=== PATIENT | male | born 1935 | race Caucasian/White ===

== ENCOUNTER 2019-11-27 19:16 | Inpatient (IN) | payer OTHER, BC ==
[~2019-11-27] VITALS: Ht 180.3 cm; Wt 54.0 kg
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
[2019-11-27 19:19] VITALS: BP 142/86
[2019-11-27 20:33] LABS: ABSOLUTE NEUTROPHILS 4.4 thou/uL (1.4-8.2); BASOPHILS 1.3 % (0.0-2.0); EOSINOPHILS 3.2 % (0.0-3.0); HEMATOCRIT 36.7 % (42.0-52.0); HEMOGLOBIN 12.5 gm/dL (14.0-18.0); LYMPHOCYTES 30.1 % (24.0-44.0); MCH 31.1 pg (26.0-34.0); MCHC 33.9 g/dL (28.0-37.0); MCV 91.8 fL (80.0-100.0); MONOCYTES 10.2 % (1.0-8.0); PLATELET COUNT 241 thou/uL (150-400); POLYS 55.2 % (36.0-66.0); RDW 14.2 % (10.5-14.5); WBC 8.1 thou/uL (4.0-11.0)
[2019-11-27 20:34] LABS: URINE BILIRUBIN NEGATIVE (Negative); URINE BLOOD NEGATIVE (Negative); URINE CLARITY CLEAR; URINE COLOR YELLOW; URINE GLUCOSE-RANDOM* NEGATIVE (Negative); URINE KETONES NEGATIVE (Negative); URINE LEUKOCYTES-REFLEX TRACE (Negative); URINE NITRITE-REFLEX NEGATIVE (Negative); URINE PROTEIN (DIPSTICK) NEGATIVE (Negative); URINE UROBILINOGEN 0.2 E.U./dl (0.2-1.0)
[2019-11-27 20:50] LABS: ANION GAP 3 mmol/L (7-16); BUN 27 mg/dL (7-18); CALCIUM 8.7 mg/dL (8.5-10.1); CHLORIDE 105 mmol/L (98-107); CO2 33 mmol/L (21-32); CREATININE 0.8 mg/dL (0.7-1.3); GLUCOSE 87 mg/dL (74-106); POTASSIUM 4.3 mmol/L (3.5-5.1); SODIUM 141 mmol/L (136-145)
[2019-11-27 20:54] LABS: AMP/METHAMP Negative (Negative); BARBITURATES Negative (Negative); BENZODIAZEPINES Negative (Negative); COCAINE Negative (Negative); METHADONE Negative (Negative); OPIATES Negative (Negative); PCP Negative (Negative)
[2019-11-27 20:55] LABS: ALBUMIN 3.6 g/dL (3.4-5.0); SGOT 17 U/L (15-37); SGPT 17 U/L (30-65); TOTAL BILIRUBIN 0.7 mg/dL (0.2-1.0); TOTAL PROTEIN 7.1 g/dL (6.4-8.2); TROPONIN-I <0.06 ng/mL (<0.06)
[2019-11-27] MEDS ORDERED: CHILDREN'S ASPI81 M1 PO (20:56)
[2019-11-27] MEDS ORDERED: DILTIAZEM 24HR120 M1 PO (20:57)
[2019-11-27] MEDS ORDERED: OLANZAPINE PO (20:58)
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
--- NOTE | 2019-11-28 14:27 | NUR ---
SPOKE WITH STEP DAUGHTER, AURELIA BAH: [phone] ABOUT PT STATUS; WOULD LIKE AN UPDATE WHEN AVAILABLE
[2019-11-28 15:34] VITALS: BP 145/89
[2019-11-28 16:31] VITALS: BP 146/85
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
--- NOTE | 2019-11-28 18:27 | NUR ---
PT STEP DAUGHTER AURELIA Silvestre. CALLED AND MESSAGE LEFT TO RETURN CALL.
[2019-11-28 19:16] LABS: TSH 2.952 uIU/mL (0.358-3.740)
[2019-11-28 19:25] VITALS: BP 132/71
--- NOTE | 2019-11-29 04:17 | NUR ---
Assumed care of pt @ 1900. Pt calm et cooperative this shift. No medication was given to patient on this shift. Pt very confused et repeatedly asked where his room was after just having been shown. Ambulates the halls ad cisco with steady gait. VSWNL. Health assessment with no abnormalities noted at present time. Denies SI/HI but unsure if patient completely understood the questions that were asked of him. Socialized with peers in dayroom until HS. Currently resting in bed with eyes closed. Will continue to monitor per protocol.
[2019-11-29 07:33] VITALS: BP 136/82
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
[2019-11-29 19:30] VITALS: BP 106/83
[2019-11-29 19:40] VITALS: BP 106/83
[2019-11-29 20:41] VITALS: BP 136/82
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
--- NOTE | 2019-11-30 08:36 | EKG ---
[facility] [place] [address] [place] [address] ELECTROCARDIOGRAM REPORT Name: TIFFANIE ROMEO Room #: 52-A ADM IN M.R.#: [id number] Admission: 11/28/19 Attend Phys: Reji Kelly DO Discharge: Date of : 33 Report #: [id number] THIS REPORT FOR: cc: Jerod Reich MD, Stanley P. MD Lundgren, Craig H. 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
--- NOTE | 2019-11-30 17:33 | NUR ---
PT HAS BEEN VERY PLEASANT ALL SHIFT. PT COMES OUT OF ROOM FULLY GROOMED AND MAKES OWN BED PRIOR TO COMING OUT. PT THEN EATS ALL MEALS AT TABLE. PT DID SEEM CONFUSED THIS AFTERNOON PACING AROUND THE UNIT HOLDING A BOX OF TISSUES AND A PATIENT WELCOME FOLDER. PT TAKES PILLS WHOLE ORDERED. NO BEHAVIOR ISSUES NOTED THIS SHIFT.
[2019-11-30 19:45] VITALS: BP 98/60
[2019-11-30 20:00] VITALS: BP 98/60
--- NOTE | 2019-12-01 00:24 | NUR ---
PATIENT WAS DIRECT ADMIT FROM [facility]. SHE CAME BY EMS AND ARRIVED BY STRETCHER TO [facility] AT 2130. SHE IS A/0X4. SHE WAS HOSPITALIZED FROM 11/21-11/27/19 AT [facility] FOR PSYCH ISSUES. SHE WENT BACK TO ED 11/30/19. PATIENT STATES SHE HAS BEEN HAVING AUDITORY HALLUCINATIONS FOR 2 MONTHS. SHE STATES THAT FROM HER [facility]ARTMENT WHERE SHE LIVES ALONE WITH HER CAT, THAT SHE HEARS THE ADMINISTRATION OFFICE WORKERS GOSSIPING AND SHE HAS CALLED THE OFFICE AND TOLD THEM THAT SHE CAN HEAR WHAT THEY ARE TALKING ABOUT. SHE ALSO STATES THAT SHE SEES A RECURRING NUMBER COME ACROSS HER CELL PHONE [phone] AND SHOWS HER THAT $1000 IS BEING TRANSFERRED OUT OF HER ACCOUNT. SHE STATES SHE CALLED HER SISTER WHO LIVES IN [place], [place] AND SHE CHECKED INTO IT AND TOLD THE PATIENT THAT THIS IS JUST IN HER MIND AND IT'S NOT REALLY HAPPENING. PATIENT DENIES WANTING TO HURT HERSELF OR ANYONE ELSE. SHE STATES SHE IS AWARE THAT SHE IS NOT THINKING RIGHT AND WANTS TO GET RID OF THE HALLUCINATIONS. PATIENT IS CONTINENT OF BOWEL AND BLADDER. SHE DOES HAVE A REDDENED AREA AT HER BUTTOCK CRACK THAT IS RED AND IRRITATED AND SORE. BARRIER CREAM IN ROOM FOR USE AFTER TOILETING AND SHOWERING. PATIENT USES A WALKER AT HOME BUT USES A CANE WHEN SHE WAS IN HOSPITAL BEFORE. WALKER AND BEDSIDE COMMODE PLACED IN PATIENT ROOM FOR USE. PATIENT WAS ASSISTED IN TRANSFER TO AND FROM [facility] AND IN PUTTING HER PANTS ON. PATIENT CAME IN WITH EYEGLASSES, HEARING AIDS X2 WITH BATTERIES THAT ARE IN HER LOCKER TONIGHT. SHE HAS DENTURES UPPER AND LOWER. SHE CAN FEED HERSELF. SHE REFUSED A BOX LUNCH TONIGHT EXPLAINING THAT SHE HAD SOME SNACKS AT [facility] BEFORE SHE CAME. SHE TOOK HER ORDERED HS MEDS WHOLE WITH WATER WITHOUT ISSUE. SHE IS STAND BY ASSIST X 1. PATIENT IS CALM AND COOPERATIVE. PT CONSULT ORDERED. FALL RISK BAND PLACED ON PATIENT. NO YELLOW SHIRTS IN HER SIZE ARE IN SUPPLY CLOSET AT THIS TIME. BED IN LOW POSITION AND BED ALARM ON. SABILLON PLACED NEXT TO PATIENT TO CALL FOR HELP. PT STATES SHE HAS PAIN AT TIMES FROM ARTHRITIS BUT DENIES ANY AT THIS TIME. NO AUDITORY HALLUCINATIONS AT THIS TIME. CONTINUING TO MONITOR.
--- NOTE | 2019-12-01 03:04 | NUR ---
PATIENT HAS BEEN UP WANDERING THE HALLS AND LOOKING LOST. HE HAS BEEN CARRYING PAPERS AND HIS WELCOME PACKET AROUND IN HIS HAND IF IT IS IMPORTANT FILES. HE HAS BEEN WANTING TO LEAVE TONIGHT AND KEEPS SAYING THAT HE HAS AN APPOINTMENT THAT HE NEEDS TO GO TO WITH HIS TOMORROW. PATIENT WAS REDIRECTABLE. HE DRESSED HIMSELF FOR BED BY PUTTING A GOWN OVER HIS CLOTHES HE HAD ON ALREADY. HE STATES THIS WILL KEEP HIM WARMER. PT TOOK HIS HS MED WITHOUT ISSUE. HE WENT TO BED ON HIS OWN TONIGHT. CONTINUING TO MONITOR.
[2019-12-01 09:07] VITALS: BP 115/64
--- NOTE | 2019-12-01 14:19 | NUR ---
Alert and orientated X4. Calm and compliant for the most part this AM. One incident of becoming agitated this AM after breakfast when another pt. was bothering him. Began yelling for the nurse and when incident was addressed he pushed himself back forcefully from the table and then calmed himself down with some direction from staff. Denies SI/HI but states that sometimes he wants to scare people when they are bothering him. Breath sounds clear. Reg HR auscultated. Color pink with brisk capillary refill and palpable peripheral pulses. Independent with voiding. Active bowel sounds over soft, flat abdomen. Participating in group this AM.
--- NOTE | 2019-12-01 14:21 | NUR ---
CHRIS contacted Joanne to introduce self. No answer. CHRIS left msg. [phone]. SW team will continue to follow pt during his stay on this unit.
--- NOTE | 2019-12-01 14:26 | NUR ---
Alert and orientated X 1 this AM. Does have some coherent speech but alot of confused speech. Unsteady on his feet this AM when first awake, placed on fall precautions. Much more steady when ambulating later in AM. Denies SI/HI. Calm and compliant, participating in cares/groups. Breath sounds clear. Reg HR auscultated. Color pink with brisk capillary refill and palpable peripheral pulses. Independent with voiding. Active bowel sounds over soft, flat abdomen. Participating in groups this AM.
[2019-12-01 19:16] VITALS: BP 138/82
[2019-12-01 22:53] VITALS: BP 138/82
--- NOTE | 2019-12-02 00:43 | NUR ---
Assumed care of patient this pm shift. Patient is in good spirits, pleasantly confused. Patient is calm and cooperative, easily redirectable. Patient wonders around the unit, exit seeking by the main doors. Patient is alert and oriented to self only. Patients affect is blunted. Patient takes medications whole and needs encouragement to take them. Patient is ambulatory and walks with a steady gait. Patients assessment shows no signs of acute distress. Patient denies pain. Patient denies hi/si. We will continue to monitor per hospital policy. Patient did not voice any concerns at this time.
[2019-12-02 09:13] VITALS: BP 136/84
--- NOTE | 2019-12-02 09:39 | NUR ---
PATIENT IS UP, AND OUT ON THE UNIT, AMBULATES WITH SLOW SLIGHTLY UNSTEADY GAIT. PATIENT TOOK ALL MEDICATION WHOLE WITHOUT DIFFICULTY. PATIENT IS EATING MEALS, AND DRINKING FLUID WELL. PATIENT IS ALERT TO SELF, PLEASANTLY CONFUSED, WANDERS, CAN BE INTRUSIVE AT AT TIMES. PATIENT DENIES SUICIDAL/HOMICIDAL IDEATION, NOT ABLE TO APPROPRIATELY RESPOND TO FURTHER ASSESSMENT QUESTIONS DUE TO COGNITIVE IMPAIRMENT. PATIENT DENIES HAVING PHYSICAL PAIN. AFFECT FLAT/BLUNTED, MOOD IS EUTHYMIC. NO SIGN OF ACUTE DISTRESS NOTED AT THIS TIME, WILL CONTINUE TO REDIRECT, AND MONITOR FOR SAFETY.
[2019-12-02 20:17] VITALS: BP 137/87
--- NOTE | 2019-12-03 04:04 | NUR ---
assumed care approx 190 evening 12/01. pt sitting in recliner in community room and also up ambulating freely tolerating well. pt pleasant and cooperative taking hs meds willingly. pt sleeping off and on sometimes ambulating out to community room and watching tv. will continue to monitor.
[2019-12-03 09:16] VITALS: BP 113/75
--- NOTE | 2019-12-03 09:50 | NUR ---
CHRIS contacted Joanne. No answer. CHRIS left ms. SW team will continue to follow pt during his stay on this unit.
--- NOTE | 2019-12-03 10:42 | NUR ---
PATIENT HAS BEEN UP, AND OUT ON THE UNIT, AMBULATES WITH SLOW SLIGHTLY UNSTEADY GAIT. PATIENT IS FORGETFUL, CONFUSED, WANDERS INTO PEERS ROOMS, EXIT SEEKS, REDIRECTALE THOUGH. PATIENT IS CALM, COOPERATIVE WITH CARE, FOLLOWS DIRECTION. PATIENT TOOK ALL MEDICATION WHOLE WITHOUT DIFFICULTY, HE IS EATING MEALS, AND DRINKING FLUID WELL. PATIENT DENIES SUICIDAL/HOMICIDAL IDEATION. PATIENT NOT ABLE TO APPROPRIATELY RESPOND TO FURTHER ASSESSMENT QUESTIONS DUE TO COGNITIVE IMPAIRMENT. AFFECT IS FLAT/BLUNTED, MOOD IS EUTHYMIC. NO AGGRESSION OR AGITATION NOTED, NO SIGN OF ACUTE DISTRESS NOTED AT THIS TIME, WILL MONITOR FOR SAFETY.
--- NOTE | 2019-12-04 04:20 | NUR ---
Pt. up late during the evening wandering around the halls and in the dining area. He offers no complaints. Currently resting quietly in his bed. Pt. offers no complaints of pain.
--- NOTE | 2019-12-04 08:16 | NUR ---
RT Progress Note- Josh's level of participation in the milieu and groups is hindered by his cognition, though he has been present in most morning exercise groups since admission. Josh is pleasant in short conversations that remain nonsensical and is easily redirected to a task for short periods of time when he begins wandering the unit.
[2019-12-04 09:30] VITALS: BP 117/76
--- NOTE | 2019-12-04 09:44 | NUR ---
PT FINISHED BREAKFAST. PT TOOK HIS MEDS WITHOUT ANY ISSUES. PT STATED HE WANTED TO GO HOME AND COME BACK. PT UP WALKS ON HIS OWN WITH STEADY GAIT. PT DENIES ANY PAIN.
--- NOTE | 2019-12-04 11:59 | NUR ---
SW received a vm from Glenys with the [facility] in regards to pt at [phone]. She said that she has been involved with pt's for a while and is very concerned about pt going home. She said pt's is the only DPOA and does not have a DPOA herself; she is not appropiate to care for pt. She is concerned that she will not make the decision for pt to go into placement, and pt is a safety risk at home so may be in need of a state guardian. She asked if she could have an incapacity letter sent to her.
[2019-12-04 13:29] VITALS: BP 117/76
[2019-12-04 19:50] VITALS: BP 117/68
--- NOTE | 2019-12-05 03:21 | NUR ---
ASSESSMENT: PT REMAIN ALERT TIMES ONE, CONFUSED. WALKING AROUND THE UNIT, WANDERING IN OTHERS ROOM. INCONTINENT IN PANTS BEFORE GETTING IN BED. FOLLOWED DIRECTIONS AND DID NOT GET AGGRESSIVE THIS SHIFT. ONCE CLOTHES WERE TAKEN OFF AND A GOWN WAS GIVEN TO HIM, HE WENT STRAIGHT TO SLEEP. SLOW PROGRESS TOWARDS DC GOALS., WILL CONTINUE TO MONITOR.
[2019-12-05 08:30] VITALS: BP 110/66
--- NOTE | 2019-12-05 08:46 | NUR ---
PT UP EATING BREAKFAST. PT TOOK MEDS THIS AM WITHOUT ANY ISSUES. THIS MANAGER EMS ASSISTED WITH CUTTING UP PEACHES. PT ALERT TO SELF. PT THINKS HE CAN LEAVE AND IS READY TO LEAVE. PT UP AD DAVID WITH STEADY GAIT.
--- NOTE | 2019-12-05 11:00 | NUR ---
PT WALKING AROUND WITH BELONGINGS IN BAG AND GOING INTO OTHER ROOMS. PT EASILY DIRECTED OUT OF ROOM TO HIS ROOM. PT ALLOWED THIS PAY CLERK TO TAKE BAG FROM HIM AND PUT IN HIS ROOM.
--- NOTE | 2019-12-05 19:02 | NUR ---
PT HAS HAD A GOOD DAY TODAY. PT HAS BEEN UP WALKING AND GOING INTO AND OUT OF ROOM. PT EASILY DIRECTED. PT DID LAY DOWN FOR A NAP TODAY RIGHT AFTER 1500 MED.
--- NOTE | 2019-12-06 04:15 | NUR ---
PATIENT ASSESSED AND IS ALERT X 2. IS CONFUSED BUT VERY PLEASANT.UP AD DAVID IN HALLWAY AND HIS ROOM. TAKEN ALL MEDS WELL. IS FORGETFUL WHERE HIS ROOM IS AT. WONDERS IN OTHER PEOPLES ROOMS. REDIRECTED WILL GOOD SUCCESS. NO BEHAVIORS THIS SHIFT. NO SI/HI/AVH NOTED THIS SHIFT. SLEEPING WELL.A MAJOR NEUROCOGNATIVE DISORDER. REMAINS COOPERATIVE THIS SHIFT. CONT PLAN OF CARE.
[2019-12-06 07:00] VITALS: BP 111/69
[2019-12-06 13:33] VITALS: BP 111/69
--- NOTE | 2019-12-06 16:47 | NUR ---
ASSUMED CARE OF PT AT 0700. PT ALERT AND ORIENTED TIMES TWO. VSS. VERY CONFUSED. PT DENIES SI/HI. PT APPEARS TO BE TALKING TO HIMSELF. PT DENEIS PAIN. PT UP AND OUT AROUND THE UNIT, AND INTERACTS WITH STAFF AND PEERS. PT TOLERATES MEDS AND MEALS. WILL CONTINUE TO MONITOR.
[2019-12-06 20:20] VITALS: BP 118/67
[2019-12-06 21:05] VITALS: BP 118/67
--- NOTE | 2019-12-07 01:30 | NUR ---
PATIENT WAS UP IN DINING ROOM TONIGHT VISITING WITH ANOTHER PATIENT WHO THOUGHT THIS PATIENT WAS HER . THEY WERE BOTH PLEASANTLY CONFUSED AND CONVERSED TOGETHER. HE HAD HS SNACK. PATIENT SAT QUIETLY IN DR UNTIL BED. HE WAS ABLE TO FIND HIS ROOM TONIGHT. HE DID SAY HE WOULD LIKE TO LEAVE AT 0930 IN THE MORNING FOR AN APPOINTMENT FOR HIS CAR. HE TOOK HIS HS MED WITHOUT ISSUE. HE HAD BM 8. HE DENIES PAIN, SI/HI. HE IS CONFUSED AND DELUSIONAL BUT IS NOT TRYING TO ELOPE. PATIENT IS CONTINENT AND DOES TAKE HIMSELF TO THE RESTROOM. BED ALARM ON FOR SAFETY. PATIENT ABLE TO GO TO BED ON HIS OWN TONIGHT. ROUTINE ROUNDING TO ASSESS FOR SAFETY AND STATUS OF PATIENT. CONTINUING TO MONITOR.
[2019-12-07 08:00] VITALS: BP 132/67
[2019-12-07 08:47] VITALS: BP 132/67
--- NOTE | 2019-12-07 08:49 | NUR ---
PT TOOK MEDS THIS AM WITHOUT ANY ISSUES. PT CONFUSED AND ORIENTED TO SELF. PT WALKS UP AD DAVID WITHOUT ANY ISSUES. PT KNOWS WHERE HIS ROOM IS AND IS VERY NEAT. PT ABLE TO FEED SELF AND DOES EAT HIS MEALS. PT SITS IN DINING ROOM AT TIMES AND ISN'T VERY SOCIAL.
--- NOTE | 2019-12-07 14:51 | NUR ---
PT WALKING AROUND UNIT WITH HIS BAG OF CLOTHES, PT READY TO GO HOME.
[2019-12-07 19:39] VITALS: BP 150/68
[2019-12-07 22:46] VITALS: BP 150/68
--- NOTE | 2019-12-08 02:43 | NUR ---
Assumed care of patient this pm shift. Patient is pleasantly confused ambulating in the us with a bag of his belongings. Patient denies pain. Patient denies hi/si. Patient is alert and oriented to self. Patient takes medications whole with thin fluids. Patients affect is blunted. Patients assessment shows no signs of acute distress. Patient is continent of bowel and bladder. Patient asked RN how much a room was going to cost and when he can get off this floor for business that he has on another floor. Patient is calm and cooperative and easily redirected. We will continue to monitor per hospital policy.
[2019-12-08 07:25] VITALS: BP 120/73
--- NOTE | 2019-12-08 08:29 | NUR ---
PT UP IN DINING ROOM. PT TAKING PO MEDS WITHOUT ANY ISSUES. PT LUNGS CLEAR. PT IS FEEDING SELF AND DRINKING ENSURE. PT DOES WALK AROUND WITH BAG OF BELONGINGS CHECKING DOORS.
[2019-12-08 08:30] VITALS: BP 120/73
--- NOTE | 2019-12-08 10:22 | NUR ---
SW received a vm from Glenys asking her to fax the incapacity letter for pt to [phone]. SW team will continue to follow pt during his stay on this unit.
--- NOTE | 2019-12-08 14:36 | NUR ---
CHRIS spoke with Veronika Black at [phone]; she is currently in rehab at [facility]. She confirmed that she is wanting placement for pt with the possiblity of her moving into either [place] or [place] side of the facility while pt resides in the memory care. CHRIS faxed a listing to [phone]. CHRIS team will continue to follow pt during her stay on this unit.
--- NOTE | 2019-12-08 17:25 | NUR ---
PT HAD BAG OF CLOTHES TODAY, PT EASILY REDIRECTED TO PUT CLOTHES BACK TO ROOM. PT TALKED ABOUT [place] AND SOMETHING IS WRONG THERE. HE STATED HE STOPPED DRINKING, PT STATED HE IS TOO OLD TO GO TO [place] NOW.
[2019-12-08 18:51] VITALS: BP 139/62
--- NOTE | 2019-12-09 01:04 | NUR ---
Assumed pt's care this pm shift. Pt wasin the hallway, wandering and exit seeking with a brown paper bag. Pt voiced that he was ready to go home. Nursing reoriented pt and informed pt that he would be staying here in the hospital this night. Pt was able to sit down in the dayroom when nursing prompted to, in order to carry out assessment. Pt was alert and oriented to self, confused, forgetful. Pt had flight of ideas, tangential. Pt was calm and cooperative with assessment. Pt took meds whole before going to bed. Pt currently in bed sleeping. Will continue to monitor.
[2019-12-09 07:25] VITALS: BP 135/85
--- NOTE | 2019-12-09 12:10 | NUR ---
calm and cooperative. denies si/sh/hi. gait steady without assistive devices. APPETITE FAIR. ORIENTED TO PERSON ONLY. COMPLIENT WITH TAKING MEDICATIONS PRESCRIBED.
--- NOTE | 2019-12-09 14:32 | NUR ---
CHRIS and Dr. Kelly attempted to contact Veronika at [facility]. No answer. CHRIS contacted the CHRIS Adams and left a msg for Veronika with her. CHRIS and Dr. Kelly contacted Joanne. No answer. Dr. Kelly left her a msg stating that Veronika is now making decisions for pt again and so he and CHRIS will be communicating with her in regards to pt's care. SW team will continue to follow pt during his stay on this unit.
[2019-12-09 19:29] VITALS: BP 109/58
[2019-12-09 20:30] VITALS: BP 109/58
--- NOTE | 2019-12-09 22:57 | NUR ---
PATIENT WAS TIRED TONIGHT. HE SAT IN DINING ROOM FOR AWHILE AND HAD HS SNACK. HE WENT TO BED BEFORE 2100. HE STATES HE HAD A SMALL STOOL TODAY BUT THAT IT IS FIRM. PATIENT GIVEN MOM WITH HS MED. HIS BREATH SMELLS LIKE BM. HIS ABDOMEN IS ROUND AND FIRM TONIGHT. HE DENIES PAIN. HE DENIES SI/HI/AVH. TONIGHT HE SAID HE HAD A ROOM THAT HE STAYS IN HERE AND THAT HE WAS GOING TO GO TO IT AND GET READY FOR BED. THERE WAS NO EXIT SEEKING TONIGHT OR MENTION OF LEAVING. PATIENT SEEMS CONTENT AND MORE COMFORTABLE IN HIS SURROUNDINGS AND LESS ANXIOUS. BED IN LOW POSITION AND BED ALARM IS ON. PATIENT A/O X 2. PATIENT IS A STANDBY ASSIST WHEN TOILETING. WILL CONTINUE TO ROUND TO ASSESS STATUS AND SAFETY OF PATIENT. PATIENT UP TO BATHROOM ONCE SO FAR TONIGHT WITHOUT A BM.
--- NOTE | 2019-12-10 05:42 | NUR ---
PATIENT SLEPT THRU NIGHT AND WAS UP X 3 TO USE RESTROOM. NO BM RESULTS. PATIENT SLEEPING AT THIS TIME. WILL CONTINUE TO MONITOR. BED IN LOW POSITION AND BED ALARM IS ON.
[2019-12-10 08:00] VITALS: BP 125/79
--- NOTE | 2019-12-10 12:06 | NUR ---
PT CARE ASSUMED AT 0700. A&Ox1. PT PACING THE HALLS AND WILL MUMBLE HIS NEEDS AND WHEN ASKED TO REPEAT WHAT HE SAID WILL RESPOND WITH NEVER MIND IN A KIND TONE. WOULD LIKE TO SHOWER TOMORROW. OT/PT ON BOARD. PT PARTICIPATED IN GROUP. NEED TO GET A STANDING WEIGHT, WILL NOTE ONCE COMPLEETE. WILL CONTINUE TO MONITOR. CALL LIGHT IN REACH.
--- NOTE | 2019-12-10 14:21 | NUR ---
SW sent referrals to [facility], [facility], [facility], and [facility]. SW team will continue to follow pt during her stay on this unit.
[2019-12-10 19:31] VITALS: BP 127/83
--- NOTE | 2019-12-11 05:32 | NUR ---
Assumed care of pt @ 1900. Pt calm et cooperative this shift but continues to be very confused. Took medication whole without difficulty. Ambulates the halls ad cisco with mostly steady gait. VSWNL. Health assessment with no abnormalities noted at present time. Unable to assess SI/HI due to cognitive deficit but pt does not demonstrate any signs or symptoms of emotional distress at present time. Currently resting in bed with eyes closed. Will continue to monitor per protocol.
--- NOTE | 2019-12-11 11:41 | NUR ---
RT Progress Note- Josh attends most recreation groups he is requested to attend. His cognition hinders his full participation, but he is able to remain present and focused- sometimes writing on scratch paper to keep busy. He has not displayed any aggression or agitation and is redirectable when requiring reorientation to unit and surroundings as he frequently states he is going to go home.
--- NOTE | 2019-12-11 12:42 | NUR ---
PATIENT CARE ASSUMED AT 0700 - ABLE TO AMUBLATE INDEPENDENTLY. MAKES NEEDS KNOWN BUT CONFUSION EVIDENT AT TIMES. PATIENT DENIES ANY PAIN OR DISCOMFORT. WANDERS ABOUT UNIT - TRIES DOORS AT TIMES. PATIENT APPETITE GOOD - SLEPT IN THIS MORNING - HAD BREAKFAST LATE. UP AND DRESSED SELF - MADE BED AND TOOK CARE OF OWN ADL AND TOLLETING. PATIENT TAKES MEDICATIONS WHOLE COMPLIANTLY.NO AGITATION - PLEASANT AND AGREEABLE. - NEEDS REDIRECTION - GAIT STEADY.
--- NOTE | 2019-12-11 14:30 | NUR ---
CHRIS received notice from [facility] that their memory care unit is full. CHRIS also received a call from [facility] asking for a return call. CHRIS spoke to Joanne extensively (per Veronika's request) about d/c options. They discussed alternative options if pt's continuous churn buttermaker care insurance continues to be pending such as: taking pt home with hired staff and placing him in respite until a decision can be made. CHRIS explained that both options will be out of pocket. Joanne said they were interested in [facility] and doing respite. CHRIS contacted [facility] at [phone]. She did not get an answer from Olu so she left a msg with the switchboard operator receptionist. CHRIS told Joanne that she will pass her info to the coordiantor [facility] once he calls and ask him to call her to discuss respite.
[2019-12-11 19:09] VITALS: BP 113/66
--- NOTE | 2019-12-12 05:16 | NUR ---
Assumed care of pt @ 1900. Pt calm et cooperative with pleasant demeanor this shift. Took medication whole without difficulty. Ambulates the halls ad cisco with steady gait. VSWNL. Health assessment with no abnormalities noted at present time. Denies SI/HI but unsure if pt truly understands the questions asked of him at the present time. Currently resting in bed with eyes closed. Will continue to monitor per protocol.
[2019-12-12 07:30] VITALS: BP 126/74
--- NOTE | 2019-12-12 14:23 | NUR ---
PATIENT CARE ASSUMED AT 0700 - PATIENT ALERT TO SELF - AGREEABLE AND PLEASANT. CONFUSED - FOUND THIS MORNING IN PEERS ROOM IN BATHROOM. UNDERSTANDING LIMITED - EASILY REDIRECTED. WANDERS ABOUT THE UNIT - ELOPEMENT RISK - MEDICATION COMPLIANT. NO AGITATION OR AGGRESSION NOTED. GOOD APPETITE - 100 PER CENT OF BREAKFAST AND LUNCH. AMBULATES STEADILY - TOLLETS SELF - HAS EPISODES OF INCONTINENCIES.
[2019-12-12 19:47] VITALS: BP 125/81
--- NOTE | 2019-12-13 03:49 | NUR ---
Assumed care of pt @ 1900. Pt calm et cooperative with pleasant demeanor this shift. Took medications whole without difficulty. Ambulates the halls ad cisco with steady gait. VSWNL. Health assessment with no abnormalities noted at present time. Socialized with peers in dayroom until HS. Denies SI/HI but unsure that pt truly understands the questions asked of him. Continue to have bouts of confusion. Currently resting in bed with eyes closed. Will continue to monitor per protocol.
[2019-12-13 07:29] VITALS: BP 118/75
--- NOTE | 2019-12-13 10:34 | NUR ---
Assumed care for patient at 0700. Ambulatory, gait steady. Confused. Patient stated he was in [place] yesterday talking to a man. Cooperative with care. Alert, oriented to person, knew he was somewhere else but could not name this place. Lungs sounds clear, abdomen soft, bowel sounds present. Heart rate regular. No peripheral edema observed. Bruising notes in upper extremeties. Calm, No agitation or aggression noted. No seizure activitiy observed. taking medications without issue. Euthymic. Sitting up in dayroom.
--- NOTE | 2019-12-13 16:42 | NUR ---
SW received a message from Olu with [facility] [phone]; returned his call but was unable to leave a voice message. Also, received a message from Pastora [phone] cell with [facility]; returned her call and left a message for her.
[2019-12-13 19:14] VITALS: BP 101/67
--- NOTE | 2019-12-14 02:26 | NUR ---
ASSUMED CARE FROM DAYSHIFT RN PT UP IN DAY ROOM.AL COOPERATIVE , CONFUSION NOTED IN CONVERSATON,PO MEDICATION. PT FULLY DRESSED IN CLOTHING WAITING TO BE DISMISSED. HS SNACK EATEN TOLERTED WE. PT NOW SLEEPING QUIETLY WILL THROUGHOUT PROTOCOL ROUNDS.WILL CONITUNE MONITOR AND REPORT CHANGES .
[2019-12-14 07:13] VITALS: BP 85/52
[2019-12-14 07:56] VITALS: BP 117/49
--- NOTE | 2019-12-14 14:58 | NUR ---
CHRIS received a message from Leta with [facility] [phone] office/ [phone] fax stating she spoke to Joanne who is asking that a referral be sent to them. CHRIS spoke to Joanne to clarify and informed that [facility] has accepted pt. Joanne reports her mother reported speaking to Pastora with [facility] but was not sure what they discussed. CHRIS provided [facility]'s contact information and informed that pt is scheduled for discharge on . Joanne stated [facility] is closer to pt's home but she would give [facility] a call to make a final decision. CHRIS faxed a referral to [facility] per the family's request. CHRIS team will continue to follow during inpatient stay.
--- NOTE | 2019-12-14 17:17 | NUR ---
ASSUMED PATIENT CARE AT 0700. ALERT TO SELF. CONFUSED AND IRRITABLE SOMETIMES. AMBULATED IN HALLWAY. SLOWLY TOWARDS POC GOALS.
[2019-12-14 19:59] VITALS: BP 97/66
--- NOTE | 2019-12-15 06:13 | NUR ---
Assumed pt's care @2340. Spoke with pt briefly prior to assumption of care. Pt oriented to self. Confusion. Wandering into other pts' rooms. Pt had an uneventful night. Woke up several times to use the bathroom and went back to sleep afterwards. Pt still in his bed, sleeping. Will continue to monitor.
[2019-12-15 07:28] VITALS: BP 92/65
[2019-12-15 08:57] VITALS: BP 98/50
--- NOTE | 2019-12-15 08:58 | NUR ---
follow up on am vs pt bp 92/50 and pulse 150 PER MACHINE ON AM VS-AMBER RECHECK AT APPROX. 0830 DOES SHOW BP 98/50-PULSE RATE IS IRREGULAR WITH RATE OF 73. PT DENIES DIZZINESS, OR DIZZINESS UPON ARISING -WAS COOPERATIVE WITH ALLOWING STAFF TO ASSIST TO TABLE AND TAKING 120 CC FLUIDS PRIOR TO BREAKFAST-DOES REPORT FEELING "FULL" AFTER DRINKING 60-80 CC BUT CONSUMED REST WITH SUPPORT/REASSURANCE.
--- NOTE | 2019-12-15 10:18 | NUR ---
CHRIS received a call from Joanne stating that Veronika is in tears because she believes someone called her and told her the pt was dying. CHRIS talked with Dr. Kelly who said that he called Veronika to ask about DNR status, not to tell her pt was dying. CHRIS and Dr. Kelly spoke with Joanne and explained the DNR status and also the fact that pt' is being examined because his heart rate is high; he may go medical. Dr. Kelly agreed to contact Joanne later with an update. CHRIS spent more time discussing with her DNR and hospice. She said her and her mom Veronika are going ot [facility] to look at the facility. They will make a choice between [facility] [place] and [facility]. SW team will continue to follow pt during his stay on this unit.
[2019-12-15 10:36] LABS: HEMATOCRIT 33.5 % (42.0-52.0); HEMOGLOBIN 11.2 gm/dL (14.0-18.0); MCH 31.2 pg (26.0-34.0); MCHC 33.5 g/dL (28.0-37.0); MCV 93.1 fL (80.0-100.0); RBC 3.6 mil/uL (4.50-6.00); RDW 14.6 % (10.5-14.5); WBC 6.8 thou/uL (4.0-11.0)
--- NOTE | 2019-12-15 10:36 | NUR ---
DR. SONG ON FLOOR AND ROUNDING ON PT AT APPROX 1000-INFORMED OF LABILE HEARTRATE THIS AM-CONNECTED TO VS MACHINE FOR CONSTATN MONITORING OF HR AND INITIALLY RATE IN 80'S WITHIN 30 MINUTES 147-PT DENIES CHEST PAIN/DISCOMFORT-BP 114/68-02 SAT 98 PERCENT ON RA. EKG COMPLETED AT APPROX 1012-DR SONG NURSING PEST CONTROL OPERATOR AND PROCUREMENT OFFICER,LAB AT BEDSIDE. IV STARTED IN RIGHT FOREARM-IV BOLUS NORMAL SALINE 250CC PER HOUR INITTIATED AT APPROX 1020. PT IS ALERT CONTINUES TO DENY/[id number] STATING "SHOULD I GO BACK TO MY BED"
[2019-12-15] MEDS ORDERED: VITAMIN D325 MC1 PO (10:43)
[2019-12-15 10:52] LABS: ANION GAP 5 mmol/L (7-16); BUN 35 mg/dL (7-18); CALCIUM 8.7 mg/dL (8.5-10.1); CHLORIDE 105 mmol/L (98-107); CO2 32 mmol/L (21-32); CREATININE 0.8 mg/dL (0.7-1.3); GLUCOSE 124 mg/dL (74-106); MAGNESIUM 2.1 mg/dL (1.8-2.4); POTASSIUM 4.3 mmol/L (3.5-5.1); SODIUM 142 mmol/L (136-145); TROPONIN-I <0.06 ng/mL (<0.06)
--- NOTE | 2019-12-15 11:06 | NUR ---
REC INFO TO CALL 5S TO REC REPORT ON PT JUST INVOLVED IN RAT. CALLED BACK IN THREE MIN AND NURSE WAS UNAVAILABLE AND SAID SHE'D RETURN CALL. READING NOTES SHOW PT ELOPEMENT RISK, HE'LL BE DELIVERED TO CCU AFTER HIS CXR. REC FULL REPORT AND WILL AND ADMIT APPLICABLE ONCE HE'S ON UNIT. 5S STAFF STATE HE HAS SEVERE DEMENTIA, SWEET, WALKS ON HIS OWN UP ON 5S, ADMITED HE WAS TRYING TO LEAVE HIS HOME AND STRUCK OUT AT HIS SPOUSE.
--- NOTE | 2019-12-15 11:44 | EKG ---
[facility] [place] [address] [place] [address] ELECTROCARDIOGRAM REPORT Name: TIFFANIE ROMEO Room #: 521A-A DIS IN M.R.#: [id number] Admission: 11/28/19 Attend Phys: Reji Kelly DO Discharge: 12/15/19 Date of : 31 Report #: [id number] THIS REPORT FOR: cc: Jerod Reich MD, Stanley P. MD Lammoglia, Francisco J. MD ~ THIS REPORT FOR: //name// [facility] Test Date: 2019-12-15 Test Time: 10:13:06 Pat Name: TIFFANIE ROMEO Department: Room: 521A A Gender: M Counselor At Law: TRISTIAN : 1935 Requested By: Francisco Bah Order Number: [id number] MD: Mario Dodson Measurements Intervals [place] Rate: 145 P: -75 VT: 69 QRS: -37 QRSD: 84 T: 88 QT: 267 QTc: 415 Interpretive Statements Supraventricular tachycardia cannot exclude atrial tachycardia with 2-1 block RSR' in V1 or V2, probably normal variant Probable LVH with secondary repol abnrm Compared to ECG 11/27/2019 19:51:56 RSR' in V1 or V2 now present Sinus rhythm no longer present Ventricular premature complex(es) no longer present Electronically Signed On 12-15-2019 11:44:20 CDT by Mario Dodson [email or web address] <ELECTRONICALLY SIGNED> By: Mario Dodson MD 12/15/19 1144 1013 1013 Mario Dodson MD /EPI
--- NOTE | 2019-12-15 16:02 | 2DMMODE ---
[facility] [place] [address] [place] [address] 2 D/M-MODE ECHOCARDIOGRAM Name: TIFFANIE ROMEO Room #: 521A-A [facility] IN M.R.#: [id number] Admission: 11/28/19 Attend Phys: Reji Kelly DO Discharge: 12/15/19 Date of : 31 Report #: [id number] THIS REPORT FOR: cc: Jerod Reich MD, Stanley P. MD Lundgren, Craig H. MD [facility] ~ APPROVED REPORT Study performed: 12/15/2019 14:13:41 EXAM: Comprehensive 2D, Doppler, and color-flow Echocardiogram Patient Location: Bedside Room #: 214 Status: routine BSA: 1.67 HR: 73 bpm BP: 98/50 mmHg Other Information Study Quality: Adequate Indications Hypertension/HDD SVT vs aflutter 2D Dimensions RVDd: 41.58 mm IVSd: 8.83 (7-11mm) LVOT Diam: 19.03 (18-24mm) LVDd: 39.43 mm PWd: 9.49 (7-11mm) Ascending Ao: 31.02 (22-36mm) LVDs: 27.61 (25-40mm) Aortic Root: 32.17 mm IVC: 24.00 mm Volumes Left Atrial Volume (Systole) Single Plane 4CH: 49.92 mL Single Plane 2CH: 83.39 mL LA ESV Index: 41.00 mL/m2 Aortic Valve AoV Peak Jorge.: 1.14 m/s AO Peak Gr.: 5.24 mmHg LVOT Max P.86 mmHg LVOT Max V: 0.85 m/s MICHAEL Vmax: 2.10 cm2 [facility] [address] [place] [address] 2 D/M-MODE ECHOCARDIOGRAM Name: JEFF ROMEOROY Room #: 521A-A [facility] IN [facility].#: [id number] Admission: 11/28/19 Attend Phys: Reji Kelly Discharge: 12/15/19 Date of : 31 Report #: [id number] Mitral Valve MV Peak Gr.: 13.34 mmHg MV Mean Gr.: 3.71 mmHg MV Decel. Time: 123.01 ms MV E Max Jorge.: 1.58 m/s MV Max Jorge.: 1.83 m/s MV Mean Jorge.: 0.82 m/s MV VTI: 324.16 mm IVRT: 55.36 ms Pulmonary Valve PV Peak Jorge.: 0.79 m/s PV Peak Gr.: 2.49 mmHg Pulmonary Vein P Vein S: 0.52 m/s P Vein A: 0.27 m/s P Vein D: 0.27 m/s P Vein A Dur.: 121.1 msec P Vein S/D Ratio: 1.93 Tricuspid Valve TR Peak Jorge.: 2.38 m/s RAP Estimate: 10.00 mmHg TR Peak Gr.: 22.78 mmHg PA Pressure: 33.00 mmHg Left Ventricle The left ventricle is normal size. There is normal LV segmental wall motion. There is normal left ventricular wall thickness. The left ventricular systolic function is normal. The left ventricular ejection fraction is within the normal range. LVEF is 55%. Right Ventricle The right ventricle is normal size. The right ventricular systolic function is normal. Atria Left atrium is moderately dilated. Right atrium is moderately dilated. Aortic Valve Mild aortic valve sclerosis. No aortic regurgitation is present. There is no aortic valvular stenosis. Mitral Valve Moderate thickening of anterior mitral valve leaflet, cannot rule out vegetation. Eccentric, moderate mitral regurgitation. No evidence of mitral valve stenosis. [facility] [address] [place] [address] 2 D/M-MODE ECHOCARDIOGRAM Name: TIFFANIE ROMEO Room #: [address] [place] [address] [place] ..#: [id number] Admission: 11/28/19 Attend Phys: Reji Kelly Discharge: 12/15/19 Date of : 31 Report #: [id number] Tricuspid Valve The tricuspid valve is normal in structure. Mild to moderate tricuspid regurgitation. PAP is estimated at 33 mmHg. Pulmonic Valve The pulmonary valve is normal in structure. Mild to moderate pulmonic regurgitation. Great Vessels The aortic root is normal in size. IVC is dilated and collapses >50% with inspiration. Pericardium There is no pericardial effusion. <Conclusion> The left ventricular systolic function is normal. There is normal LV segmental wall motion. LVEF is 55%. Both atria are moderately dilated. Mild aortic valve sclerosis. No aortic regurgitation or stenosis. Moderate thickening of anterior mitral valve leaflet, cannot rule out vegetation. Eccentric, moderate mitral regurgitation. Mild to moderate tricuspid regurgitation. Pulmonary artery pressure estimated at 33 mmHg. There is no pericardial effusion. <ELECTRONICALLY SIGNED> By: Jovi Zee MD, [facility] 12/15/19 1602 160 1602 Jovi Zee MD, FAC /INF
[2019-12-15] MEDS ORDERED: OLANZAPINE2.5 MG PO (16:16)
== END 2019-12-15 11:16 | DRG 56 ==
LOC: ER 19:16 → EROBS 11-28 07:44 → SBH 11-28 07:44
PROVIDERS: Emergency Medicine; Internal Medicine; ADMIT Psychiatry & Neurology Psychiatry; ATTEND Psychiatry & Neurology Psychiatry
DX: G30.9 Alzheimer's disease, unspecified (principal); F02.81 Dementia in other diseases classified elsewhere, unspecified severity, with behavioral disturbance; E43 Unspecified severe protein-calorie malnutrition; F01.51 Vascular dementia, unspecified severity, with behavioral disturbance; I48.20 Chronic atrial fibrillation, unspecified; I48.92 Unspecified atrial flutter; I47.1 Supraventricular tachycardia; Z68.1 Body mass index [BMI] 19.9 or less, adult; N40.0 Benign prostatic hyperplasia without lower urinary tract symptoms; I10 Essential (primary) hypertension; Z20.828 Contact with and (suspected) exposure to other viral communicable diseases; Z79.899 Other long term (current) drug therapy; Z79.82 Long term (current) use of aspirin
CPT/HCPCS: 10880

== ENCOUNTER 2019-12-15 10:54 | Inpatient (IN) | payer OTHER, BC ==
[~2019-12-15] VITALS: Ht 180.3 cm; Wt 60.4 kg
[~2019-12-15 10:54] MED LIST: CHILDREN'S ASPI81 M1 PO; DILTIAZEM 24HR120 M1 PO; OLANZAPINE PO; VITAMIN D325 MC1 PO
--- NOTE | 2019-12-15 11:33 | NUR ---
REC PT FROM 5S RN, PT ALERT TO SELF/BDATE AND THAT IS ALL AT THIS TIME. IVF AND CARDIAC MONITORING. PT REPORTED OFF W/LOW B/P AND SVT. VERY CONFUSED YET KIND AND THUS FAR NOT IMPULSIVE, WALKS FREQ UPSTAIRS W/UNSTEADY GAIT, BED ALARM ON, UNABLE TO ANSWER MANY QUESTIONS YET WILL MAKE CONVERSATION WITH SOME MAKING SENSE. TALKS READILY ABOUT SPOUSE. ENCOURAGED TO KEEP TELE PACK IN POCKET HE'S FIDGITING W/SUPPLIES. WRAPPED R WRIST IV TO MAINTAIN PATENCY. WILL CONTINUE TO MONITOR AND VIEW ORDERS ENTERED. SEE SEPARATE INTEREVENTIONS FOR ASSESSMENTS
--- NOTE | 2019-12-15 12:20 | NUR ---
CHRIS received a fax from Pastora with [facility]. CHRIS contacted her and provided her an update that pt is now on the medical unit on the 2nd floor. Before pt was admitted to 2nd floor, CHRIS spoke with Maylin with [facility]. She asked to do a video assessment. CHRIS told her that tomorrow would be better for a video visit. CHRIS contacted her and gave her an update.
[2019-12-15 12:25] VITALS: BP 109/72
--- NOTE | 2019-12-15 12:57 | NUR ---
LET PHYSICIAN KNOW PT'S HRATE STILL VACILLATING BETWEEN 120-140S, HE SAID START A DRIP THEN, INSTEAD, CALL CARDIOLOGY. REACHED OUT TO OZZIE EL; AWAITING RETURN CALL. RETURNED CALL AND HAD ORDERED ONE TIME ORDER PO MED. AND TO JUST EVALUATE. ASKED THAT WE PLACE THE CARDIOLOGY CONSULT WELL
--- NOTE | 2019-12-15 14:07 | NUR ---
PT WAS ADMITTED TO THIS DAY FROM [address] [place] [address] RELATED TO HYPOTENSION AND SVT. PT HAD ADMITTED TO [address] [place] [address] ON 11/28. CM REVIEWED CHART AND SPOKE WITH CARE TEAM. BASED ON CHART REVIEW IT APPEARES THAT PT'S SPOUSE AND STEP DTR ARE DECIDING BETWEEN MEMORY CARE PLACEMENT AT [facility] WHICH THEY ARE VISITING TODAY AND WHO WANT TO DO A VIDEO ASSESSMENT TOMORROW OR [facility] WHO HAS ACCEPTED PT FOR ADMISSION. THEY ARE TO LET TEAM KNOW WHICH FACILITY THEY ARE INTERESTED IN PT GOING TO. [facility] NOTE INDICATES ANTICIPATED DC SATURDAY. CM TO FOLLOW INDICATED WITH DC PLANNING.
[2019-12-15 15:45] VITALS: BP 102/70
[2019-12-15] MEDS ORDERED: OLANZAPINE2.5 MG PO (16:16)
[2019-12-15 20:30] VITALS: BP 107/61
[2019-12-16 04:17] LABS: HEMATOCRIT 32.5 % (42.0-52.0); MCH 31.2 pg (26.0-34.0); MCHC 33.8 g/dL (28.0-37.0); MCV 92.3 fL (80.0-100.0); RBC 3.52 mil/uL (4.50-6.00); RDW 14.7 % (10.5-14.5); WBC 8.4 thou/uL (4.0-11.0)
[2019-12-16 04:24] LABS: CALCIUM 8.3 mg/dL (8.5-10.1); MAGNESIUM 1.8 mg/dL (1.8-2.4); POTASSIUM 4.3 mmol/L (3.5-5.1)
[2019-12-16 04:30] VITALS: BP 109/73
--- NOTE | 2019-12-16 06:56 | NUR ---
ASSESSMENTS CHARTED, MEDS CHARTED GIVEN. PATIENT RESTING IN BED DURING SHIFT. PATIENT ALERT TO SELF ONLY DURING SHIFT. FRIENDLY WHILE RESTING IN BED. AGRESSIVE WHEN WANTING TO GET UP AND USE THE BATHROOM. DOES NOT WANT TO BE TOUCHED OR HELPED, YET HE IS VERY UNSTEADY. RUDE VERBALLY. IV ERNESTO FINISHED THIS AM. PO ERNESTO STARTS THIS AM. AFLUTTER DURING SHIFT. DENIED PAIN. FALL PRECAUTIONS IN PLACE DURING SHIFT.
[2019-12-16 08:05] VITALS: BP 107/69
--- NOTE | 2019-12-16 09:55 | NUR ---
Assess due to low BMI status. Familiar with pt from recent stay on [facility] unit. Has required transfer to acute unit due to hypotension. NO CODE status. longterm underweight status. Stable wts around 115 lb. Eats 80-100% of meals. Likes to drink Ensure . Confused. Low nutrition risk with appropriate nutrition interventions in place.
[2019-12-16 12:01] VITALS: BP 113/78
--- NOTE | 2019-12-16 14:16 | NUR ---
Received awake on bed. Due medications given as prescribed, refusing at times; able to swallow w/o difficulty. On room air. Pt very confused and impulsive- Dr Goss and Dr Granger informed. Falls bundle in place. On regular diet- tolerating well; no nausea, no vomiting and no abdominal pain noted. On room air. On telemetry; ST- MECHANICAL MAINTENANCE SUPERVISOR informed during her AM rounds, will re-start medications; re-informed at 10am that pt remains tachycardic on the monitor- digoxin ordered- given as prescribed. Continent of bowel and bladder, able to use bedside commode and go to the toilet with gait belt and moderate assist. Falls bundle in place. With R FA- SL- pt trying to remove IV- wrapped with coban. Pt very unstable and able to go out of the bed even with 4 side rails up- charge nurse and housekeeper supervisor informed; pt high risk for falling and gets agitated with staff, pt saying he needs to do errands- needing to transfer pt near nurses station or possibly a sitter. To continue monitoring patient. Report given to SANYA Zavala approximately 1330.
--- NOTE | 2019-12-16 15:03 | NUR ---
Tenative plan for transition to memory care unit. [place] [facility] did onsite eval. Tenative plan to not return to [facility] but transition to memory care. Franco Rubio and discussed.
[2019-12-16 16:34] VITALS: BP 132/77
[2019-12-16 19:38] VITALS: BP 114/71
--- NOTE | 2019-12-16 20:03 | NUR ---
ASSUMED CARE APPROX 1400. PT ALERT AND ORIENTED X1. CONFUSED AND IMPULSIVE. ASSESSMENT CHARTED AND VSS. PT DENIES PAIN. PT ON ROOM AIR W/O SIGNS OF DISTRESS NOTED. PT IS VERY IMPULSIVE AND CAN BE COMBATIVE. ATIVAN WAS NOT EFFECTIVE. PT GOT UP FROM CHAIR AND CAME OUT INTO THE HALLWAY. PT BECAME COMBATIVE. DR. RAMIREZ NOTIFED REGARDING PT'S IMPULSIVE BEHAVIOR. ZYPREXA ORDERED. PT'S DTR AND UPDATED ON STATUS. PT REMAINS IN 100-115 UNTIL IMPULSIVE BEHAVIOR. THEN GETS UP TO 140-150'S. PT SLOWLY PROGRESSING TOWARDS PLAN OF CARE GOALS. WILL CONTINUE TO MONITOR.
--- NOTE | 2019-12-17 01:38 | NUR ---
ASSESSMENTS CHARTED, MEDS CHARTED GIVEN. PATIENT COMBATIVE WHEN UP AND TRYING TO GO TO THE BATHROOM. DOES NOT WANT ANY HELP BUT PATIENT IS SO UNSTEADY THAT IT TAKES TWO PEOPLE TO KEEP HIM SAFE. PATIENT WAS TRANSFERED TO ROOM 203 SO WE COULD KEEP A BETTER EYE ON HIM DURING THE NIGHT. CONTINUES TO TRY TO CLIMB OUT OF BED. DID GET HIM TO USE THE URINAL DURING SHIFT. PATIENT IN SVT AT START OF SHIFT. RECEIVED ORDER FROM DR. BRAVO TO RESTART IV CARDIZEM AND TITRATE TO KEEP HR UNDER 110. NEW IV WAS PLACED IN RIGHT FOREARM PREVIOUS IV WAS KINKED OFF. FALL PRECAUTIONS IN PLACE DURING SHIFT. DENIED PAIN.
[2019-12-17 04:48] VITALS: BP 115/56
[2019-12-17 05:56] LABS: HEMATOCRIT 33.5 % (42.0-52.0); HEMOGLOBIN 11.2 gm/dL (14.0-18.0); MCH 31.2 pg (26.0-34.0); MCHC 33.5 g/dL (28.0-37.0); MCV 92.9 fL (80.0-100.0); RBC 3.61 mil/uL (4.50-6.00); RDW 14.2 % (10.5-14.5); WBC 9.6 thou/uL (4.0-11.0)
[2019-12-17 06:31] LABS: CALCIUM 8.5 mg/dL (8.5-10.1); CREATININE 0.8 mg/dL (0.7-1.3); POTASSIUM 3.9 mmol/L (3.5-5.1)
[2019-12-17 07:30] VITALS: BP 127/47
[2019-12-17 11:30] VITALS: BP 118/64
--- NOTE | 2019-12-17 16:37 | NUR ---
[facility] is accepting of patient once medically stable. [facility] has admission paperwork need to be completed by phys prior to admission. They do not need new COVID.
--- NOTE | 2019-12-17 16:59 | NUR ---
PT CARE ASSUMED APPROX 0700. ASSESSMENTS CHARTED. PT IMPULSIVE AND AGITATED UPON REDIRECTION/REORIENTATION. VSS. MOVING AROUND IN BED OFTEN. TOLERATING POC. PT HAS NOT VOIDED THIS SHIFT. DR KING AWARE THAT 370ML OF URINE WAS NOTED ON BLADDER SCANNER AT APPROX 1400. ORDER TO WAIT UNITL 1800 THEN RESCAN AND NOTIFY HIM. WILL F/U. NO DISTRESS NOTED.
[2019-12-17 20:00] VITALS: BP 119/60
[2019-12-18] VITALS: BP 124/54
[2019-12-18 04:00] VITALS: BP 123/56
--- NOTE | 2019-12-18 05:45 | NUR ---
Assumed pt care at 2300. Pt is confused and impulsive. Fall precaution in place. Pt keeps getting out of bed. Pt is stable through the night. No sign of distress noted. Continue to monitor. No needs a this time.
--- NOTE | 2019-12-18 07:43 | NUR ---
PT. AWAKE AND VERY CONFUSED ORIENTS TO SELF ONLY. HEART RATE IS CONTROLLED NOW THIS AM. PT. ON 4L NC AND NO SIGN'S OF SOB OR DESATURATIONS. FIDGETS ALOT AND PULLS OFF HIS OXYGEN SO FREQUENT REORIENTATIONS TO POC FOR HIM. FALL RISK OBSERVED, BED IN LOW POSTION AND PT. AT NURSES STATION FRONT AREA FOR THIS REASON, WILL CHART MOSTLY IN HIS ROOM TODAY FOR INCREASED SAFETY AND COMPLIANCE. IV SITE IS C,D,I AND CARDIZEM GTT INFUSING, WILL TITRATE IT DOWN TO SEE IF HEART RATE STAYS IN A CONTROLLED RATE.
[2019-12-18 08:45] VITALS: BP 110/49
[2019-12-18 12:00] VITALS: BP 120/67
--- NOTE | 2019-12-18 13:15 | NUR ---
PT. BECAME VERY AGITATED AND RESTLESS. HE ATTEMPTED TO GET OUT OF BED NUMEROUS TIMES, GONZALEZ SNOT REIRIENT TO SURROUNDINGS OR SITAUTION AT ALL. MOVED HIM TO THE CHAIR FOR COMFORT TRANSFERRED FAIRLY STEADY AND REPLACES HIS LEADS ON HAYLIE S WELL HIS OXYGEN WHICH HE HEAD REMOVED WELL PRIOR. HE DESATURATES WITH AGITATION AND ACTIVITY TO THE HIGH 80'S, INCREASED NASAL CANNULA BACK UP TO 4L FROM 2 LITERS AND HE WENT UP TO 92% NOW. AFLUTTER, CONTROLLED RATET THUS FAR TODAY. HALDOL ORDERED AND GIVEN IV AT THIS TIME FOR SAFETY AND MEDICAL COMPLIANCE OF PT. HE DID ATTEMPT TO SWING AT MY WELL AND HIT ME IN THE FACE BUT WAS ABLE TO GET OUT OF THE WAY TO AVOID SUCH. SYMPTOMS REPORTED TO MD ON CASE AND INTERVENTIONS FOR CARE PROVIDED.
--- NOTE | 2019-12-18 14:15 | NUR ---
Sp with /dtr with RN. Patient on cardizem drip. he is very confused. Leta with [facility] reports family questioning if need for rehab prior to Assisted Living. 5N evaled and not a candidate for rehab. He is not medically stable and cannot follow commands, impulsive and in restraints. Rn spoke at length with and dtr. wants to see patient. 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 she questions why he has deteriated so rapidly. Rn reviewed with his heart rate and conditions. requested psychiatrist Dr Granger call . Patient to be reevaluated Saturday for Assisted living. No weekend discharge plans.
--- NOTE | 2019-12-18 17:33 | NUR ---
LONG DISCUSSION WITH AND DAUGHTER TO TRY TO EXPLAIN BEST POSSIBLE WHY HE IS NOT UP "WALKING AROUND AND TALKING LIKE HE WAS ON ADMISSION". EXPLAINED THAT HIS HEART RYTHYM HAS CHANGED NOW AND HIS OXYGEN DEMAND HAS INCREASED WELL. TRIED TO ASSESS HOW REALISITC THEY WERE WITH HIS OVERALL CONDITON IN RELATIONS TO HIS STATUS CHANGE FORM TIME OF ADMISSION. MADE THE MOST PROGRESS WITH THE DAUGHTER AND SHE WAS MUCH MORE REALISTIC ABOUT HIS CONDITON AND [facility] PLANS WHEN WE ENDED THE PHONE CALL. SHE INQUIRED IF MAYBE "PERHAPS WE NEED TO BE CONSIDERING MORE OF A HOSPICE CARE FOR HIM NOW". I TOLD THEM THE TEAM WILL RE-EVALUATE HIS CONDITONS OVER THE WEEKEND AND DR. KING WOULD BE MAKING THIS CALL ULTIMATLEY WITH CARDIOLOGY TEAM. THEY WERE OPEN AND RECEPTIVE TO SUCH AND I ENCOURAGED THEM TO COME UP AND SEE HIM TODAY IF POSSIBLE. WILL COME UP AT AROUND 17:00PM TODAY FOR A VISIT.
--- NOTE | 2019-12-18 17:39 | NUR ---
MICAH RRIVED AT BEDSIDE AND THEY NOTED THAT HE WAS "WORKING HARDER TO BREATHE TODAY THEN BEFORE"-REINFORCED HIS MEDICAL CHANGES AT THE OVERALL CONDIOTNS OF HIM NOW CURRENTLY. AFLUTTER CONTINUES CONTROLLED RATE BUT TRIED TO WEAN HIM DOWN AND HE WENT UP TO 137 HR-140 WHEN DID SUCH WITH CARDIZEM GTT.
[2019-12-18 20:16] VITALS: BP 125/65
[2019-12-19 03:40] VITALS: BP 137/79
--- NOTE | 2019-12-19 04:08 | NUR ---
Assumed pt care at 190. Pt is confused. Sitter present at bedside. No is very impulsive and keeps trying to get out of bed. Fall precaution in place. Assessment completed and documented. Scheduled meds administered to pt. Pt tolerated PO intake. Denies pain. Pt is wheezing with breathing. NONPROFIT MANAGER notified. One time dose of furosemide and PRN albuterol breathing treatment ordered. Administered to pt. No acute events overnight. No further needs at this time.
[2019-12-19 05:41] LABS: HEMATOCRIT 35.4 % (42.0-52.0); HEMOGLOBIN 11.6 gm/dL (14.0-18.0); MCH 30.5 pg (26.0-34.0); MCHC 32.8 g/dL (28.0-37.0); MCV 93.1 fL (80.0-100.0); RBC 3.81 mil/uL (4.50-6.00); RDW 14.4 % (10.5-14.5)
[2019-12-19 05:52] LABS: CALCIUM 8.8 mg/dL (8.5-10.1); CREATININE 0.8 mg/dL (0.7-1.3); POTASSIUM 3.4 mmol/L (3.5-5.1)
--- NOTE | 2019-12-19 18:33 | NUR ---
ASSUMED CARE OF PT AT SHIFT CHANGE. ASSESSMENTS CHARTED. MEDS GIVEN PER JUN. PT NOT ALERT OR ORIENTED. VERY LETHARGIC, SLEPT ALL DAY. WILL OPEN EYES ON COMMAND FOR A MOMENT, ANSWERS WITH A SLIGHT HEAD SHAKE WHEN ASKED ABOUT PAIN. HR RATE SUSTAINED BELOW 110 UNTIL ABOUT 1800, GAVE PRN LOPRESSOR ORDERED. PT HAS BEEN NPO ALL DAY D/T SOLMNOLENCE. PT ON NRB AT 15L, SATTING IN 90S. WILL CONTINUE TO MONITOR AND FOLLOW POC
[2019-12-19 20:35] VITALS: BP 113/54
--- NOTE | 2019-12-20 02:40 | NUR ---
PATIENT ALERT AND ORIENTED X1. SKIN IS PALE AND PATIENT IS VERY FRAGILE AND THIN. TOLERATING NRB AT 15 PER RT. IV ABX INFUSED W/O COMPLICATION. PATIENT HAS TAKEN NOTHING BY MOUTH DURING THE NIGHT. PATIENT DOES NOT FORM SENTENCES BUT TOLERATES CARE. INCONTINENT OF B/B. RESTING QUIETLY.
[2019-12-20 03:58] VITALS: BP 117/77
[2019-12-20 07:10] VITALS: BP 138/65
[2019-12-20 09:11] LABS: ABSOLUTE NEUTROPHILS 9.8 thou/uL (1.4-8.2); BASOPHILS 0.2 % (0.0-2.0); EOSINOPHILS 0.4 % (0.0-3.0); HEMATOCRIT 35.4 % (42.0-52.0); HEMOGLOBIN 11.4 gm/dL (14.0-18.0); LYMPHOCYTES 5.5 % (24.0-44.0); MCH 30.1 pg (26.0-34.0); MCHC 32.1 g/dL (28.0-37.0); MCV 93.7 fL (80.0-100.0); MONOCYTES 9.7 % (1.0-8.0); PLATELET COUNT 337 thou/uL (150-400); POLYS 84.2 % (36.0-66.0); RBC 3.78 mil/uL (4.50-6.00); RDW 14.7 % (10.5-14.5); WBC 11.7 thou/uL (4.0-11.0)
[2019-12-20 09:22] LABS: CALCIUM 8.5 mg/dL (8.5-10.1); CREATININE 0.8 mg/dL (0.7-1.3); POTASSIUM 3.6 mmol/L (3.5-5.1)
[2019-12-20 11:15] VITALS: BP 116/55
[2019-12-20 16:40] VITALS: BP 129/45
--- NOTE | 2019-12-20 18:53 | NUR ---
ASSUMED CARE OF PT AT SHIFT CHANGE. ASSESSMENTS CHARTED. MEDS GIVEN PER MAR. PT ALERT TO SELF, IMPULSIVE. AWAKE MOST OF SHIFT, ANSWERS Y/N QUESTIONS, TRYING TO GET OUT OF BED SEVERAL TIMES, REDIRECT. HR FLUCTUATES BETWEEN ONE TEENS AND 150. CARDIOLOGY AWARE. WILL CONTINUE TO MONITOR AND FOLLOW POC.
[2019-12-20 20:17] VITALS: BP 116/58
[2019-12-20 23:11] VITALS: BP 120/55
[2019-12-21] VITALS (8 sets, daily range): BP systolic 108–136; BP diastolic 63–86
[2019-12-21 04:14] LABS: HEMATOCRIT 36.2 % (42.0-52.0); HEMOGLOBIN 11.7 gm/dL (14.0-18.0); MCH 30.3 pg (26.0-34.0); MCHC 32.4 g/dL (28.0-37.0); MCV 93.4 fL (80.0-100.0); RBC 3.88 mil/uL (4.50-6.00); RDW 14.9 % (10.5-14.5); WBC 10.8 thou/uL (4.0-11.0)
--- NOTE | 2019-12-21 04:20 | NUR ---
assumed pt care at the change of shift, pt is awake, alert and oriented to self, aflutter on the monitor, with hr elevated but not sutstained, assessments as charted, vss, medicated as ordred, prn ativan given for agitation, pt is resting in bed with eyes closed at this time, no attempts to get out of bed at this time, frequent roundings, no acute distress noted at this time, will continue to monitor
[2019-12-21 04:26] LABS: CALCIUM 8.7 mg/dL (8.5-10.1); CREATININE 0.9 mg/dL (0.7-1.3); POTASSIUM 3.1 mmol/L (3.5-5.1)
--- NOTE | 2019-12-21 16:11 | NUR ---
Faxed updated clinical information to [facility]. Patient cont on oxygen will need to arrange oxygen like home setting prior to discharge. Will need sat/excercise and COVID.
--- NOTE | 2019-12-21 18:16 | NUR ---
PT CARE ASSUMED AT 0700. ASSESSMENTS CHARTED. MEDICATION CHARTED. COVID PERFORMED IN PREPARATION FOR TRANSFER. PT IS INCONTINENT OF B & B. O2 4 LPM NC. LFA IV. AFIB. AO X 1; CONFUSED; HALLUCINATES. HR HAS BEEN IN THE 150'S INTERMITTANTLY. DILTIAZEM GIVEN. METOPROLOL GIVEN. PT IMPULSIVE.
[2019-12-22] VITALS (7 sets, daily range): BP systolic 116–143; BP diastolic 55–85
--- NOTE | 2019-12-22 03:34 | NUR ---
pt care assumed at the chnage of shift, pt is awake, alert and inpulsive, pt is confused with hallucinations noted, remains afib on the monitor, hr elevated at the beginning of shift, metoprolol given prn as ordered, remains on 4l nc, no pain noted, vss, medications given as per jun, will continue to monitor
[2019-12-22 05:02] LABS: HEMATOCRIT 39.4 % (42.0-52.0); HEMOGLOBIN 12.8 gm/dL (14.0-18.0); MCH 30.6 pg (26.0-34.0); MCHC 32.6 g/dL (28.0-37.0); MCV 93.9 fL (80.0-100.0); RBC 4.2 mil/uL (4.50-6.00); WBC 12.7 thou/uL (4.0-11.0)
[2019-12-22 05:16] LABS: CALCIUM 9.3 mg/dL (8.5-10.1); CREATININE 0.9 mg/dL (0.7-1.3); POTASSIUM 3.4 mmol/L (3.5-5.1)
--- NOTE | 2019-12-22 16:49 | NUR ---
no dicharge today due to monitor heart rate and oxygen need. Updated [facility]. Attempted to call dtr Joanne but mailbox full.
--- NOTE | 2019-12-22 17:29 | NUR ---
Sp with dtr Joanne and at bedside. 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 He was able to dress himself. They question if assisted living memory care the best fit for patient. They discussed hospice services at Assisted living. Casemgt sent updated clinical to [facility] on [place] 12/21/19. agreeable to sign outside DNR here at hospital. on chart for phys to sign. Requested phys call dtr to discuss medical overview of patient.
--- NOTE | 2019-12-22 18:50 | NUR ---
PT CARE ASSUMED AT 0700. ASSESSMENTS CHARTED. MEDICATION CHARTED. PT TAKES MEDICATIONS CRUSHED IN APPLESAUCE. AFLUTTER; RATE REMAINED BELOW 110'S. POSSIBLE DISCHARGE 12/23/19. COVID NEGATIVE. PT WAS MUCH QUIETER TODAY.
[2019-12-23 05:25] VITALS: BP 128/81
[2019-12-23 05:27] LABS: HEMATOCRIT 38.3 % (42.0-52.0); HEMOGLOBIN 12.4 gm/dL (14.0-18.0); MCH 30.2 pg (26.0-34.0); MCHC 32.2 g/dL (28.0-37.0); MCV 93.6 fL (80.0-100.0); RBC 4.09 mil/uL (4.50-6.00); RDW 14.8 % (10.5-14.5); WBC 15.8 thou/uL (4.0-11.0)
[2019-12-23 05:42] LABS: CALCIUM 9.5 mg/dL (8.5-10.1); CREATININE 1.1 mg/dL (0.7-1.3)
[2019-12-23 06:24] LABS: POTASSIUM 2.9 mmol/L (3.5-5.1)
--- NOTE | 2019-12-23 08:16 | NUR ---
assumed pt care at the change of shift, pt is awake, alert, confused sometime inpulsive, afib on the monitor, rates controlled last night, calm most of the night, vss, no acute distress noted, passed on report to day nurse
--- NOTE | 2019-12-23 08:24 | NUR ---
Followup: pt with worsening dementia and oral intake declining less than 50% most meals. Hypernatremia, Na 154 and Cl 114. Has been started on D5 fluids. Wts were stable 115-120 lb, now ? 129-132 lb range. Receives Ensure supplement. Chart reviewed and note pt DNR with possible discharge to Memory Care or with hospice soon. Will have extra fluids sent on tray.
[2019-12-23 08:36] VITALS: BP 135/73
[2019-12-23 11:16] VITALS: BP 133/78
--- NOTE | 2019-12-23 15:11 | NUR ---
FAXED CLINICAL UPDATE TO [facility] SPOKE WITH CIPRIANO IN ADM SHE RECEIVED UPDATE AND WILL FOLLOW.
[2019-12-23 15:29] VITALS: BP 135/73
--- NOTE | 2019-12-23 18:25 | NUR ---
ASSUMED CARE AT CHANGE OF SHIFT. ALERT TO SELF, RESTLESS, ABLE TO REDIRECT. PARTICIPATED IN THERAPY, ATE 75% OF BREAKFAST, REFUSED LUNCH AND DINNER. MEDS GIVEN IN APPLE SAUCE. ENCOURAGED FLUIDS HOWEVER, PT PUSHES CUP AWAY AND SAYS "NO". INCONTINENT OF BLADDER. NO BM TODAY. AFIB ON TELE WITH RATE RAISING IN TO 150 WHEN PARTICIPATED WITH THERAPY AND WHEN RESTLESS. REQUIRES FREQUENT OVERSIGHT TO ASSURE OXYGEN NASAL CANNULA IS IN PLACE. BED ALARM SET. STAFF TO ANTICIPATE NEEDS.
[2019-12-23 19:30] VITALS: BP 147/68
[2019-12-23 23:30] VITALS: BP 96/67
--- NOTE | 2019-12-24 02:19 | NUR ---
ASSUMED CARE 1900. PT AWAKE, DISORIENTED. PERIODICALLY TRYING TO GET OUT OF BED. INTIAL ASSESSMENT, NOTED PT HAD A FIRM DISTENDED STOMACH. DISTANT BOWEL SOUNDS. PT RETRACTS WITH PAIN UPON PALPATION. BLADDER SCAN SHOWED RESIDUAL OF 1646 MLS, LAST RECORDED BM MOVEMENT WAS 12/15/19. NPO NOTIFIED, INDWELLING MCNULTY INSERTED, AND SUPPOSITORY X 1. TOTAL OUTPUT FROM MCNULTY 1900. PT REPORTS FEELING COMFORTABLE AFTER AFTER INSERTING MCNULTY. ABDOMEN FEEL SOFTER AT THIS TIME. NO APPARENT PAIN. DENIES NAUSEA, OR VOMITING. NOTED PATIENT TO THE IMPACTED DURING SUPPOSITORY ADMINISTRATION. RECTAL STIMULATION UNSUCCESSFUL. WILL CONTINUE TO MONITOR AND FOLLOW POC.
[2019-12-24 04:00] VITALS: BP 122/52
[2019-12-24 05:55] LABS: HEMATOCRIT 34.2 % (42.0-52.0); HEMOGLOBIN 11.2 gm/dL (14.0-18.0); MCH 30.5 pg (26.0-34.0); MCHC 32.8 g/dL (28.0-37.0); MCV 93.1 fL (80.0-100.0); RBC 3.68 mil/uL (4.50-6.00); RDW 14.6 % (10.5-14.5); WBC 15.2 thou/uL (4.0-11.0)
[2019-12-24 07:06] LABS: ALBUMIN 2.4 g/dL (3.4-5.0); MAGNESIUM 2.1 mg/dL (1.8-2.4); TOTAL BILIRUBIN 0.8 mg/dL (0.2-1.0); TOTAL PROTEIN 5.8 g/dL (6.4-8.2)
[2019-12-24 07:14] LABS: POTASSIUM 2.9 mmol/L (3.5-5.1)
--- NOTE | 2019-12-24 08:15 | NUR ---
AM-ASSESSMENT: PT. TRYING TO PULL HIS MCNULTY OUT, REDIRECTED HIS BEHAVIOR ANDPUT THE TUBING BELOW BED AREA SO IT WAS OUT OF SITE FOR HIM AT LEAST. NO BM POST INTERVENTION EARLIER ON FUND DEVELOPMENT MANAGER, WILL WATCH FOR SUCH AND F/U WITH MORE AGGRESSIVE BOWEL MGMT. IF NO OUTOUT TODAY ON DAY SHIFT. PT. IS AWAKE AOX1. HEART RATE IS SLIGHTLY ELEVATED NOW LOW 100'S OVERALL. IV PATENT NO SIGN'S OF INFILTRATION. AFIB TO NSR ON MONITOR.
[2019-12-24 08:16] VITALS: BP 152/68
[2019-12-24 11:00] VITALS: BP 127/59
[2019-12-24 15:15] VITALS: BP 114/71
--- NOTE | 2019-12-24 15:59 | NUR ---
Spoke with Leta at [facility] and updated on care. DC materials planner faxed clinicals. Patient on 2 liters of oxygen hopefully be able to wean prior to dc. If patient with need for oxygen. It is arranged as home setup. Need sat/excercise and arrange with DME company [employer]. Sp with dtr Joanne discussed possible dc in am. [facility] does not accept patients on weekend.
--- NOTE | 2019-12-24 18:08 | NUR ---
14:00 CALLED AT THIS TIME LONG UPDATE PROVIDED ON HIS STATUS TODAY AND CARE PLAN. SHE WAS VERY INTERESTED ABOUTAN EX DAUGHTER -IN-LA[place] VISITING HIM SHE DOES NOT WANT THAT TO HAPPEN THEY HAVE A STRAINED RELATIONSHIP. WILL PASS THIS ALONG TO STAFF. PT. RESTING ON AND OFF TODAY MUCH MORE CALM IN DEMEANOR OVERALL AND LESS FIDGETING WITH THINGS. HE DOES PULL HIS OXYGEN OFF PERIODICALLY AND HAVE TO PLACE IT BACK ON HIM FOR COMPLIANCE.
[2019-12-24 20:55] VITALS: BP 108/50
[2019-12-25 00:22] VITALS: BP 108/50
[2019-12-25 04:45] VITALS: BP 125/61
--- NOTE | 2019-12-25 05:28 | NUR ---
PT ALERT TO SELF, CAN BE IMPULSIVE, BED ALARM ON AND FREQUENT ROUNDING, MCNULTY WITH YELLOW URINE, VSS, O2 SAT 94% ON 2L/NC AND 91% ON RA PT RARELY WILL LEAVE O2 TUBING ON, FLUIDS INFUSING IN L FA, LABS ORDERED FOR THIS AM, PLANNING ON TX TO [facility] TODAY, WILL CON'T TO MONITOR PER PPOC.
[2019-12-25 06:00] LABS: CALCIUM 8.3 mg/dL (8.5-10.1); CREATININE 0.8 mg/dL (0.7-1.3); POTASSIUM 3.7 mmol/L (3.5-5.1)
[2019-12-25 06:03] LABS: HEMATOCRIT 31.2 % (42.0-52.0); HEMOGLOBIN 10.4 gm/dL (14.0-18.0); MCH 30.9 pg (26.0-34.0); MCHC 33.4 g/dL (28.0-37.0); MCV 92.6 fL (80.0-100.0); RBC 3.36 mil/uL (4.50-6.00); RDW 14.6 % (10.5-14.5); WBC 11.4 thou/uL (4.0-11.0)
[2019-12-25 07:33] VITALS: BP 120/57
--- NOTE | 2019-12-25 09:20 | NUR ---
hospitalist signed paperwork for [facility] assisted, per not ready today but possible over the weekend, have trapper o2 to 2L. might still need home o2. cm team faxed back paper work to [facility]. [facility] called and they are not going to be able to take lucero back over weekend, rt better for [facility] to take him on saturday. cm passed on information to hospitalist and dcp almaformoso on saturday, cont to trapper o2 if able to. dcp 12/28/2019 tamara, possible will need home o2 if unable to [facility]
[2019-12-25 11:12] VITALS: BP 93/51
[2019-12-25 15:57] VITALS: BP 108/51
--- NOTE | 2019-12-25 16:34 | NUR ---
ASSESSMENT CHARTED - MEDS CRUSHED AND PLACED IN APPLESAUCE. BARBARA DIET AND FLUIDS. PT REQUIRES TO BE FEED. PT SEEN BY PHYS THERAPY AND PLACED UP IN CHAIR TODAY. AMBULATED TO THE BATHROOM WITH MUCH ASSIST. PT REMAINS CONFUSED AND DISORIENTED. MUMBLING TO SELF AND PICKING AT THINGS IN THE AIR. NO CO'S OF PAIN OR NAUSEA. APPEARS TO BE RESTING COMFORTABLY AT THE PRESENT TIME.
[2019-12-25 20:12] VITALS: BP 114/65
[2019-12-26] VITALS (7 sets, daily range): BP systolic 112–136; BP diastolic 54–96
[2019-12-26 06:15] LABS: CALCIUM 8.1 mg/dL (8.5-10.1); CREATININE 0.7 mg/dL (0.7-1.3); POTASSIUM 3.2 mmol/L (3.5-5.1)
[2019-12-26 06:18] LABS: HEMATOCRIT 30.5 % (42.0-52.0); HEMOGLOBIN 10.1 gm/dL (14.0-18.0); MCH 30.4 pg (26.0-34.0); MCHC 33.2 g/dL (28.0-37.0); MCV 91.6 fL (80.0-100.0); RBC 3.33 mil/uL (4.50-6.00); RDW 14.2 % (10.5-14.5); WBC 8.6 thou/uL (4.0-11.0)
--- NOTE | 2019-12-26 06:29 | NUR ---
PT REMAINS ORIENTED X1 AND IS RESTLESS AND IMPULSIVE AT TIMES, PUTTING FEET OVER RAILS, AND CLIMBING OUT OF BED; ALL FALL PRECAUTIONS REMAIN IN PLACE AND BED ALARM REMAINS ON; CONVERSATION DISTORTED AND NONSENSICAL; PATIENT UNSTEADY ON FEET AND REMAINS A HIGH FALL RISK, PATIENT GIVEN ATIVAN X1 FOR INCREASED AGITATION WITH GOOD RESULTS; PROGRESSING SLOWLY TOWARDS DISCHARGE TO [place] ON SATURDAY; CONTINUE TO ASSESS CLOSELY.
--- NOTE | 2019-12-26 18:27 | NUR ---
PT CARE ASSUMED AT 0700. ASSESSMENT CHARTED. MEDICATION CHARTED. LFA IV. MCNULTY PATENT. PT ADMINISTERED LORAZEPAM APPROX 1700, DUE TO AGITATION AND PULLING ON MCNULTY. PT RESPONDED BY FALLING ASLEEP. MEDICATION GIVEN CRUSHED IN APPLESAUCE.
[2019-12-27] VITALS (8 sets, daily range): BP systolic 124–145; BP diastolic 57–93
--- NOTE | 2019-12-27 04:29 | NUR ---
AGITATED LAST NOC TRYING TO GET UP, PUTTING LEGS OVER SIDE OF BED. ATIVAN GIVEN. TURNED EVERY 2-3 HOURS FOR COMFORT AND SKIN CARE. WORKING ON GOALS AND PLAN OF CARE FOR NOC. PROGRESSING SLOWLY TOWARDS DISCHARGE GOALS TO [place] FOR SATURDAY. NO APPARENT PAIN NOTED. CONTINUE TO ASSES CLOSELY.
--- NOTE | 2019-12-27 17:38 | NUR ---
PT CARE ASSUMED AT 0700. ASSESSMENTS CHARTED. MEDICATION CHARTED. LORAZEPAM FOR AGITATION. MEDICATION GIVEN CRUSHED VIA APPLESAUCE. LFA IV. MCNULTY. PT SCRATCHED HIS RT FOREARM; BLED A SMALL AMOUNT; BANDAID APPLIED. SR 1ST DEG. O2 2LPM NC; PT REGULARLY REMOVES NC AND PHYSICALLY PROTESTS WHEN YOU REPLACE IT.
[2019-12-28 04:12] LABS: HEMATOCRIT 31.9 % (42.0-52.0); HEMOGLOBIN 10.4 gm/dL (14.0-18.0); MCHC 32.7 g/dL (28.0-37.0); MCV 91.8 fL (80.0-100.0); RBC 3.48 mil/uL (4.50-6.00); RDW 14.2 % (10.5-14.5); WBC 7.4 thou/uL (4.0-11.0)
[2019-12-28 04:16] LABS: CALCIUM 8.2 mg/dL (8.5-10.1); CREATININE 0.7 mg/dL (0.7-1.3); POTASSIUM 3.2 mmol/L (3.5-5.1)
[2019-12-28 05:44] VITALS: BP 126/77
--- NOTE | 2019-12-28 06:13 | NUR ---
RESTED QUIETLY MOST OF SHIFT. REMAINS ORIENTED TO SELF ONLY, PICKS IN AIR AND TALKS IN DISTORTED CONVERSATION. DID NOT TRY TO GET OUT OF BED AND WAS CALM AND COOPERATIVE THIS SHIFT. NO ATIVAN NEEDED THIS SHIFT. ASSISTED WITH FLUIDS PRN WHEN AWAKE AND FED CONTAINER OF APPLESAUCE. WORKING ON GOALS AND PLAN OF CARE FOR NOC. PROGRESSING TOWARDS DISCHARGE GOALS SLOWLY. MONITOR LABS. CONTINUE TO ASSES CLOSELY. TURNED AND REPOSITIONED EVERY 2-3 HOURS FOR COMFORT AND SKIN CARE.
[2019-12-28] MEDS ORDERED: KLOR-CON 1010 MEQ PO (10:37)
[2019-12-28] MEDS ORDERED: MIRALAX17 GM PO (10:37)
[2019-12-28] MEDS ORDERED: CARDIZEM CD 18180 M3 PO (10:37)
[2019-12-28] MEDS ORDERED: SENNA-TIME S T1 EACH PO (10:37)
[2019-12-28] MEDS ORDERED: ALBUTEROL2.5 MG/0.5 INH (10:37)
[2019-12-28] MEDS ORDERED: FLOMAX0.4 MG PO (10:37)
[2019-12-28] MEDS ORDERED: OLANZAPINE ODT5 MG PO ×2 (10:37)
[2019-12-28] MEDS ORDERED: DIGOXIN125 MCG PO (10:37)
[2019-12-28 11:55] VITALS: BP 116/53
--- NOTE | 2019-12-28 15:13 | NUR ---
PT DISCHARGING TODAY TO [facility] FAXED DC ORDERS/SUMMARY TO FACILITY SPOKE WITH INTAKE THEY RECEIVED ORDERS THEY DO NOT HAVE [facility] TRANSPORT AVAILABLE. TRANSPORT SCHEDULED WITH [facility] FOR 1600 TODAY. NOTIFIED PT'S FAMILY (AURELIA) OF DC AND TIME OF TRANSPORT. UNIT NOTIFIED AND CHART COPY PER US. RN TO CALL REPORT TO [phone].
--- NOTE | 2019-12-28 15:53 | NUR ---
Spoke with [facility] who is able to accept patient at tx. completed their paperwork and faxed to facility with orders for discharge. Outside DNR completed. Sp with Taylor at facility who rec paperwork. casemgt needs to arrange home oxygen. Spoke with Isreal, faxed pertinent information to [facility]. Stretcher van to be arranged for transport by dc process planner. [facility] to deliver oxygen to [facility]. Sp with jluis Rubio earlier in day she is aware of discharge. Dc process planner to alert family of time of transport. Chart copied. Rn called report no further needs.
--- NOTE | 2019-12-28 16:48 | NUR ---
ASSUMED CARE OF PT AT SHIFT CHANGE. ASSESSMENTS CHARTED. MEDS GIVEN PER JUN. PT ALERT TO SELF ONLY. PT CALM TODAY, STAYED IN BED WITHOUT TRYING TO GET OUT. TALKATIVE WITH DISTORTED CONVERSATION. NO APPARENT PAIN. PT HAS POOR APPETITE, ATE ONLY SMALL PORTION OF MEALS. DISCHARGE ORDERS COMLETE. TELE AND IV DC'D. PT TRANSPORTED TO FACILITY VIA [facility].
== END 2019-12-28 16:50 | disposition home or self-care (01) | DRG 314 ==
LOC: 2N 10:54
PROVIDERS: Hospitalist; Internal Medicine; Nurse Practitioner Family; ADMIT Internal Medicine; ATTEND Internal Medicine
DX: I95.9 Hypotension, unspecified (principal); J69.0 Pneumonitis due to inhalation of food and vomit; J96.01 Acute respiratory failure with hypoxia; J15.9 Unspecified bacterial pneumonia; I48.19 Other persistent atrial fibrillation; F03.91 Unspecified dementia, unspecified severity, with behavioral disturbance; E87.0 Hyperosmolality and hypernatremia; E46 Unspecified protein-calorie malnutrition; Z68.1 Body mass index [BMI] 19.9 or less, adult; N17.9 Acute kidney failure, unspecified; E87.6 Hypokalemia; N40.0 Benign prostatic hyperplasia without lower urinary tract symptoms; I10 Essential (primary) hypertension; G47.00 Insomnia, unspecified; E55.9 Vitamin D deficiency, unspecified; Z66 Do not resuscitate; Z51.5 Encounter for palliative care; Z20.828 Contact with and (suspected) exposure to other viral communicable diseases; Z79.82 Long term (current) use of aspirin; Z79.899 Other long term (current) drug therapy
CPT/HCPCS: 10081